=== PATIENT | female | born 1970 | race Caucasian/White ===

== ENCOUNTER 2018-07-24 15:48 | Emergency (ER) | payer SELFPAY ==
[~2018-07-24] VITALS: Ht 170.2 cm; Wt 90.7 kg
[2018-07-24 16:10] VITALS: BP 142/97
[2018-07-24 17:22] LABS: Basophils # (auto) 0.1 uL; Basophils % (auto) 0.5 % (0.0-2.0); Eosinophils # (auto) 0 uL; Eosinophils % (auto) 0.2 % (0.0-7.0); Hematocrit 38.9 % (36.0-46.0); Hemoglobin 13.3 g/dL (12.2-16.2); Lymphocytes # (auto) 1.5 uL; Lymphocytes % (auto) 14.5 % (10.0-50.0); Mean Corpuscular Hemoglobin 30.1 pg (28.0-32.0); Mean Corpuscular Hgb Conc. 34.2 g/dL (32.0-36.0); Mean Corpuscular Volume 88.2 fL (80.0-100.0); Monocytes # (auto) 0.6 uL; Neutrophils # (auto) 8.2 uL; Neutrophils % (auto) 78.8 % (37.0-80.0); Nucleated Red Blood Cells % 0.2 %; Platelet Count (auto) 312 10^3/uL (140-450); Red Blood Cells 4.41 10^6/uL (4.0-5.20); Red Cell Distribution Width 15.8 % (11.8-14.3); White Blood Cell 10.4 10^3/uL (4.4-10.8)
[2018-07-24 17:32] LABS: Albumin 3.4 g/dL (3.4-5.0); Calcium 8.9 mg/dL (8.5-10.1); Magnesium 1.4 mg/dL (1.6-2.6)
[2018-07-24 17:36] LABS: BUN/Creatinine Ratio 7.1; Bilirubin, Total 1.1 mg/dL (0.2-1.0)
== END 2018-07-24 21:34 | disposition left against medical advice (07) ==
LOC: EDBD 15:48 → EDSEX 15:48 → ER 15:52
DX: R42 Dizziness and giddiness (principal); R53.1 Weakness; R11.10 Vomiting, unspecified; Z53.21 Procedure and treatment not carried out due to patient leaving prior to being seen by health care provider
CPT/HCPCS: 36415; 74176; 80053; 83690; 83735; 85025; 93005

== ENCOUNTER 2019-01-19 05:42 | Inpatient (IN) | payer OTHER ==
[~2019-01-19] VITALS: Ht 175.3 cm; Wt 116.1 kg
[2019-01-19] MEDS ORDERED: SODIUM CHLORIDE 0.9% 1,000 ML IV ONE (06:20)
[2019-01-19 06:56] LABS: Basophils # (auto) 0.1 uL; Basophils % (auto) 0.7 % (0.0-2.0); Eosinophils # (auto) 0 uL; Hematocrit 36.3 % (36.0-46.0); Hemoglobin 12.3 g/dL (12.2-16.2); Lymphocytes # (auto) 1.3 uL; Lymphocytes % (auto) 16.7 % (10.0-50.0); Mean Corpuscular Hemoglobin 28.1 pg (28.0-32.0); Mean Corpuscular Hgb Conc. 33.9 g/dL (32.0-36.0); Mean Corpuscular Volume 82.7 fL (80.0-100.0); Monocytes # (auto) 0.5 uL; Monocytes % (auto) 6.3 % (0.0-12.0); Neutrophils % (auto) 76.3 % (37.0-80.0); Platelet Count (auto) 257 10^3/uL (140-450); Red Blood Cells 4.39 10^6/uL (4.0-5.20); Red Cell Distribution Width 17.4 % (11.8-14.3); White Blood Cell 7.8 10^3/uL (4.4-10.8)
[2019-01-19] MEDS ORDERED: LORazepam 2MG/ML-1ML VIAL IV ONE (07:15)
[2019-01-19 07:16] LABS: Urine Bacteria NONE SEEN /hpf (None Seen); Urine Blood 2+ /uL (Negative); Urine Specific Gravity 1.019 (1.001-1.035); Urine WBC 7 /hpf (0 - 5)
[2019-01-19 07:24] LABS: Amphetamine Screen, Urine NEGATIVE (NEGATIVE); Barbiturate Scree,Urine NEGATIVE (NEGATIVE); Benzodiazephine Screen, Urine NEGATIVE (NEGATIVE); Cannabinoid Screen, Urine NEGATIVE (NEGATIVE); Cocaine Screen, Urine NEGATIVE (NEGATIVE); Opiate Scree,Urine NEGATIVE (NEGATIVE); Phencyclidine Screen, Urine NEGATIVE (NEGATIVE)
[2019-01-19 07:26] LABS: Albumin 3.7 g/dL (3.4-5.0); Calcium 8.5 mg/dL (8.5-10.1)
[2019-01-19 07:28] LABS: BUN/Creatinine Ratio 18.8; Bilirubin, Total 0.7 mg/dL (0.2-1.0); Total Protein 7.9 g/dL (6.4-8.2)
[2019-01-19 07:37] LABS: Potassium 2.9 mmol/L (3.5-5.1)
[2019-01-19] MEDS ORDERED: ONDANSETRON HCL 4 MG/2 ML VIAL IV ONE (07:45)
[2019-01-19] MEDS ORDERED: POTASSIUM EFFERVESENT TAB 25 MEQ PO ONE (07:45)
[2019-01-19] MEDS ORDERED: cefTRIAXone 1GM/50ML D5W 50 ML IV ONE (11:00)
[2019-01-19] MEDS ORDERED: LORazepam 0.5 MG TAB PO ONE (12:30)
[2019-01-19] MEDS ORDERED: amLODIPine BESYLATE 5 MG TAB PO ONE (13:15)
[2019-01-19] MEDS ORDERED: HYDROcodone-ACET 5/325MG TAB PO PRN (13:15)
[2019-01-19] MEDS ORDERED: MORPHINE SULF INJ 2 MG/ML SYRINGE 1ML IV PRN ×2 (13:15)
[2019-01-19] MEDS ORDERED: NITROGLYCERIN 0.4 MG SL TAB SL PRN (13:15)
[2019-01-19] MEDS ORDERED: ACETAMINOPHEN 500 MG TAB PO PRN (13:15)
[2019-01-19] MEDS ORDERED: cloNIDine HCL 0.1 MG TAB PO PRN (13:15)
--- NOTE | 2019-01-19 14:24 | NUR ---
MS admit from ER OSBALDO VALLECILLO admitted to tele/MS after SBAR received. Patient oriented to VITALY FRAGA, MILDRED primary RN, unit, room, bed, and unit policies regarding patient care and visiting hours. Patient weighed by bed scale and encouraged to call if they need something. All questions and concerns addressed, patient verbalized understanding.
[2019-01-19] MEDS: chlordiazePOXIDE HCL 5 MG CAP PO PRN ×2 (15:19→21:20)
[2019-01-19] MEDS: MULTIPLE VITAMIN 10 ML, MAGNESIUM SULF SDV 50% 8 MEQ, THIAMINE INJ 100 MG in D5W/SOD CH... IV SCH (15:20)
[2019-01-19 15:40] VITALS: BP 154/70
[2019-01-19 16:53] VITALS: BP 149/94
[2019-01-19] MEDS ORDERED: LOP2C PO (17:17)
[2019-01-19] MEDS ORDERED: TRAZ-220 PO (17:23)
[2019-01-19] MEDS ORDERED: LISI40TA PO (17:25)
[2019-01-19] MEDS ORDERED: FLUO20CA19 PO (17:25)
[2019-01-19] MEDS ORDERED: FLUoxetine HCL 20 MG CAP PO SCH (17:50)
[2019-01-19] MEDS ORDERED: LISINOPRIL 20 MG TAB PO SCH (17:50)
[2019-01-19] MEDS: ONDANSETRON HCL 4 MG/2 ML VIAL IV PRN (18:43)
[2019-01-19] MEDS: LORazepam 0.5 MG TAB PO PRN (18:43)
--- NOTE | 2019-01-19 20:00 | NUR ---
OPENING NOTE RECEIVED REPORT FROM DAYSHIFT RN. ASSUMING ROLE OF CARE OF PATIENT AT THIS TIME. PATIENT SHOWING NO SIGN OF DISTRESS, SHORTNESS OF BREATH, AND PATIENT DENIES ANY PAIN AT THIS TIME. PATIENT APPEARS ALERT AND ORIENTED AND ANSWERS QUESTIONS APPROPRIATELY. PATIENT EDUCATED ON PLAN OF CARE FOR THE NIGHT AND PATIENT VERBALIZED UNDERSTANDING. BED LOWERED, CALL LIGHT WITHIN REACH, AND PATIENT WILL BE ROUNDED ON EVERY HOUR AND NEEDED.
[2019-01-19] MEDS: ATORVASTATIN 20 MG TAB PO SCH (21:20)
[2019-01-19 21:50] VITALS: BP 155/96
[2019-01-19] MEDS: traZODone HCL 50 MG TAB PO SCH (22:00)
[2019-01-20] MEDS: chlordiazePOXIDE HCL 5 MG CAP PO PRN ×3 (05:01→18:09)
[2019-01-20 05:42] VITALS: BP 150/93
[2019-01-20 06:26] LABS: Basophils # (auto) 0 uL; Basophils % (auto) 0.6 % (0.0-2.0); Eosinophils # (auto) 0 uL; Eosinophils % (auto) 0.7 % (0.0-7.0); Hematocrit 36.7 % (36.0-46.0); Hemoglobin 12.3 g/dL (12.2-16.2); Lymphocytes % (auto) 45.5 % (10.0-50.0); Mean Corpuscular Hemoglobin 28.2 pg (28.0-32.0); Mean Corpuscular Hgb Conc. 33.4 g/dL (32.0-36.0); Mean Corpuscular Volume 84.4 fL (80.0-100.0); Monocytes # (auto) 0.6 uL; Monocytes % (auto) 8.7 % (0.0-12.0); Neutrophils # (auto) 2.9 uL; Neutrophils % (auto) 44.5 % (37.0-80.0); Nucleated Red Blood Cells % 0.1 %; Platelet Count (auto) 219 10^3/uL (140-450); Red Blood Cells 4.35 10^6/uL (4.0-5.20); Red Cell Distribution Width 17.1 % (11.8-14.3); White Blood Cell 6.5 10^3/uL (4.4-10.8)
[2019-01-20 06:40] LABS: BUN/Creatinine Ratio 13.6; Magnesium 2.7 mg/dL (1.6-2.6)
[2019-01-20 06:44] LABS: Potassium 2.8 mmol/L (3.5-5.1)
--- NOTE | 2019-01-20 06:45 | NUR ---
CRITICAL LAB VALUE PATIENT'S POTASSIUM LEVEL IS NOW 2.8. IT IS A DECREASE FROM 2.9 THE ON 01/19/19. PATIENT WAS GIVEN 50 MEQ OF POTASSIUM IN THE ER. WILL AWAIT CALL BACK OR ORDERS. Addendum: 01/20/19 at 0719 by CHAITANYA FRENCH RN HOSPITALIST [facility]. NO RESPONSE AT THIS TIME. ENDORSED TO DAVID LEVY.
--- NOTE | 2019-01-20 07:00 | NUR ---
Opening Shift Note Assumed care of patient, awake, alert, and oriented x4. No S/S of distress/SOB, but patient is reporting lower abdominal cramping. IV is in left AC 20 gauge asymptomatic, intact, patent, and saline locked. Bed locked and in lowest position and call light is within reach. Instructed on POC and to call for assist PRN, and patient verbalized understanding. Will continue to monitor for changes Q1hr and PRN.
[2019-01-20] MEDS: ONDANSETRON HCL 4 MG/2 ML VIAL IV PRN ×3 (07:22→23:22)
[2019-01-20] MEDS: LORazepam 0.5 MG TAB PO PRN ×4 (07:22→23:22)
[2019-01-20 08:31] VITALS: BP 150/96
[2019-01-20] MEDS ORDERED: POTASSIUM CHL 20 Meq TABLET PO ONE (09:00)
[2019-01-20] MEDS ORDERED: DIPHENOXYLATE W/ATROPINE 2.5 MG TAB PO PRN (09:15)
--- NOTE | 2019-01-20 09:30 | NUR ---
Filiberto Elizabeth NP, at bedside. New orders received. Will continue to monitor patient Q1.
[2019-01-20] MEDS: PANTOPRAZOLE 40 MG TAB PO SCH (11:07)
[2019-01-20] MEDS: LISINOPRIL 20 MG TAB PO SCH (11:08)
[2019-01-20] MEDS: FLUoxetine HCL 20 MG CAP PO SCH (11:08)
[2019-01-20] MEDS: LOPERAMIDE HCL 2 MG CAP PO PRN ×2 (11:12→18:09)
[2019-01-20 12:49] VITALS: BP 142/91
--- NOTE | 2019-01-20 13:30 | NUR ---
IV removal IV DC'd with clean sterile technique, catheter fully intact. Pressure dressing applied to site. Patient tolerated well.
--- NOTE | 2019-01-20 14:00 | NUR ---
IV insertion IV access obtained, via clean sterile technique by inserting 22 gauge catheter in the right upper chest. IV secured properly. No trauma to site. Patient tolerated well.
[2019-01-20] MEDS: MULTIPLE VITAMIN 10 ML, MAGNESIUM SULF SDV 50% 8 MEQ, THIAMINE INJ 100 MG in D5W/SOD CH... IV SCH (16:25)
[2019-01-20 17:23] VITALS: BP 136/63
[2019-01-20] MEDS: metroNIDAZOLE 500 MG TAB PO SCH ×2 (18:08→21:30)
--- NOTE | 2019-01-20 19:45 | NUR ---
OPENING NOTE RECEIVED REPORT FROM DAYSHIFT RN. ASSUMING ROLE OF CARE OF PATIENT AT THIS TIME. PATIENT SHOWING NO SIGN OF DISTRESS, SHORTNESS OF BREATH,A ND PATIENT DENIES ANY PAIN AT THIS TIME. PATIENT STATES FEELING ANXIOUS AND WILL BE MEDICATED PER PROTOCOL AVAILABLE. PATIENT EDUCATED ON PLAN OF CARE FOR THE NIGHT AND PATIENT VERBALIZED UNDERSTANDING. BED LOWERED, CALL LIGHT WITHIN REACH, AND PATIENT WILL BE ROUNDED ON EVERY HOUR AND NEEDED.
[2019-01-20] MEDS: ATORVASTATIN 20 MG TAB PO SCH (21:28)
[2019-01-20] MEDS: traZODone HCL 50 MG TAB PO SCH (21:28)
[2019-01-20 22:00] VITALS: BP 140/84
[2019-01-21 04:30] VITALS: BP 121/71
[2019-01-21] MEDS: metroNIDAZOLE 500 MG TAB PO SCH ×2 (05:41→13:14)
[2019-01-21] MEDS: chlordiazePOXIDE HCL 5 MG CAP PO PRN ×2 (05:47→11:50)
[2019-01-21 06:01] LABS: Basophils # (auto) 0.1 uL; Basophils % (auto) 1.1 % (0.0-2.0); Eosinophils # (auto) 0.2 uL; Eosinophils % (auto) 3.4 % (0.0-7.0); Hematocrit 35.2 % (36.0-46.0); Hemoglobin 11.7 g/dL (12.2-16.2); Lymphocytes # (auto) 2.9 uL; Lymphocytes % (auto) 48.8 % (10.0-50.0); Mean Corpuscular Hgb Conc. 33.2 g/dL (32.0-36.0); Mean Corpuscular Volume 84.2 fL (80.0-100.0); Monocytes # (auto) 0.4 uL; Monocytes % (auto) 7.1 % (0.0-12.0); Neutrophils # (auto) 2.3 uL; Neutrophils % (auto) 39.6 % (37.0-80.0); Nucleated Red Blood Cells % 0.1 %; Platelet Count (auto) 200 10^3/uL (140-450); Red Blood Cells 4.18 10^6/uL (4.0-5.20); Red Cell Distribution Width 16.3 % (11.8-14.3); White Blood Cell 5.8 10^3/uL (4.4-10.8)
[2019-01-21 06:19] LABS: BUN/Creatinine Ratio 13.4; Calcium 7.9 mg/dL (8.5-10.1); Magnesium 2.6 mg/dL (1.6-2.6); Potassium 3.2 mmol/L (3.5-5.1)
--- NOTE | 2019-01-21 07:10 | NUR ---
Opening Shift Note Received report from Brown RN. Assumed care of patient, asleep. No S/S of distress/SOB or pain. Placed call light within reach, kept 2 side rails up, will continue to monitor for changes Q1hr and PRN.
[2019-01-21 08:00] VITALS: BP 114/78
[2019-01-21 08:23] VITALS: BP 114/78
[2019-01-21] MEDS: LORazepam 0.5 MG TAB PO PRN ×2 (09:12→13:13)
[2019-01-21] MEDS: LISINOPRIL 20 MG TAB PO SCH (09:13)
[2019-01-21] MEDS: FLUoxetine HCL 20 MG CAP PO SCH (09:13)
[2019-01-21] MEDS: PANTOPRAZOLE 40 MG TAB PO SCH (09:13)
--- NOTE | 2019-01-21 09:53 | NUR ---
assessment Per consult alcohol rehab options. I have provided patient with inpatient and outpatient rehab facilities. patient accepted resources. Addendum: 01/23/19 at 0955 by Leah Hernandez Amended: Links added.
--- NOTE | 2019-01-21 11:25 | NUR ---
Filiberto FILM PROJECTOR OPERATOR at bedside. Received order that patient can be discharged today if cleared by GI. Patient made aware and verbalized understanding.
[2019-01-21] MEDS ORDERED: POTASSIUM CHL 20 Meq TABLET PO ONE (11:30)
[2019-01-21] MEDS: MULTIPLE VITAMIN 10 ML, MAGNESIUM SULF SDV 50% 8 MEQ, THIAMINE INJ 100 MG in D5W/SOD CH... IV SCH (11:51)
[2019-01-21] MEDS: ONDANSETRON HCL 4 MG/2 ML VIAL IV PRN (11:59)
--- NOTE | 2019-01-21 12:05 | NUR ---
DR CALDERÓN CALLED BACK TO INFORM THAT HE WOULD NOT SEE THE PATIENT JA[facility] BECAUSE HE DOES NOT COME TO [facility] ON WEEKENDS. SAID TO CALL IN GI CONSULT FOR DR. CAVAZOS. STOCK REPLENISHER SHAUNA MADE AWARE.
[2019-01-21 12:35] VITALS: BP 132/88
[2019-01-21 12:42] VITALS: BP 114/78
--- NOTE | 2019-01-21 13:50 | NUR ---
SPOKE WITH DR. CAVAZOS, RECEIVED VERBAL ORDER THAT PATIENT IS CLEARED [facility]. FF UP WITH GI OUTPATIENT. PATIENT MADE AWARE AND VERBALIZED UNDERSTANDING.
--- NOTE | 2019-01-21 14:27 | NUR ---
Discharge instructions given as ordered. Encourage to follow up with PMD as instructed. All questions and concerns addressed. Patient verbalized understanding. IV removed with catheter intact, pressure dressing applied. Patient taken to vehicle via wheelchair with all personal belongings, accompanied by staff and family member. No distress noted at time of departure.
== END 2019-01-21 14:28 | disposition home or self-care (01) | DRG 52 ==
LOC: ER 05:42 → OVERFLOW 13:11 → WEST WING 14:14
PROVIDERS: ADMIT Nurse Practitioner Acute Care; ATTEND Nurse Practitioner Acute Care
DX: G92 Toxic encephalopathy (principal); F33.1 Major depressive disorder, recurrent, moderate; E66.9 Obesity, unspecified; F41.9 Anxiety disorder, unspecified; K52.9 Noninfective gastroenteritis and colitis, unspecified; E78.5 Hyperlipidemia, unspecified; E87.6 Hypokalemia; F10.239 Alcohol dependence with withdrawal, unspecified; I10 Essential (primary) hypertension; N39.0 Urinary tract infection, site not specified; Z68.37 Body mass index [BMI] 37.0-37.9, adult
CPT/HCPCS: 36415; 71046; 80048; 80053; 80061; 80307; 80320; 81001; 82270; 83735; 84132; 84702; 85025; 87040; 87045; 87493; 87899; 93005; 96361; 96365; 96366; 96375; G0378; J0696; J2405

== ENCOUNTER 2019-01-26 19:51 | Emergency (ER) | payer OTHER ==
[~2019-01-26] VITALS: Ht 175.3 cm; Wt 113.4 kg
[~2019-01-26 19:51] MED LIST: FLUO20CA19 PO; LISI40TA PO; LOP2C PO; TRAZ-220 PO
[2019-01-27] MEDS ORDERED: LORazepam 2MG/ML-1ML VIAL IV ONE (00:45)
[2019-01-27] MEDS ORDERED: MULTIPLE VITAMIN 10 ML, MAGNESIUM SULF SDV 50% 8 MEQ, THIAMINE INJ 100 MG in SODIUM CHL... IV ONE (00:45)
[2019-01-27 01:15] LABS: Salicylate < 1.7 mg/dL (2.8-20.0)
[2019-01-27 01:18] LABS: Albumin 3.3 g/dL (3.4-5.0); Calcium 7.8 mg/dL (8.5-10.1); Potassium 3.7 mmol/L (3.5-5.1)
[2019-01-27 01:29] LABS: Bilirubin, Total 0.3 mg/dL (0.2-1.0); Total Protein 7.2 g/dL (6.4-8.2)
[2019-01-27 01:42] LABS: Acetaminophen < 2.0 ug/mL (10-30)
[2019-01-27 04:25] VITALS: BP 108/77
[2019-01-27] MEDS ORDERED: MAGNESIUM SULF IV ONE (12:00)
[2019-01-27] MEDS ORDERED: MULTIPLE VITAMIN IV ONE (12:00)
[2019-01-27] MEDS ORDERED: THIAMINE IV ONE (12:00)
[2019-01-27] MEDS ORDERED: [UNRECOGNIZED DRUG - OTHER] IV ONE (12:00)
== END 2019-01-27 04:40 | disposition home or self-care (01) ==
LOC: EDBD 19:51 → ER 19:53
DX: F10.229 Alcohol dependence with intoxication, unspecified (principal); F41.9 Anxiety disorder, unspecified; I10 Essential (primary) hypertension; Z79.899 Other long term (current) drug therapy; Z90.49 Acquired absence of other specified parts of digestive tract
CPT/HCPCS: 36415; 80053; 80320; 80329; 94761; 96365; 96366; 96375; 99283; J2060; J3411; J3475; J7030

== ENCOUNTER 2020-03-23 02:47 | Emergency (ER) | payer OTHER ==
[~2020-03-23] VITALS: Ht 175.3 cm; Wt 127.0 kg
[2020-03-23] MEDS ORDERED: ONDANSETRON ODT 4 MG TAB PO ONE ×2 (04:25→04:30)
[2020-03-23] MEDS ORDERED: SODIUM CHLORIDE 0.9% 1,000 ML IV ONE ×2 (06:43)
[2020-03-23] MEDS ORDERED: ONDANSETRON HCL 4 MG/2 ML VIAL IV ONE (06:45)
[2020-03-23] MEDS ORDERED: KETOROLAC TROMETH 30 MG/ML 1ML VIAL IV ONE (06:45)
[2020-03-23 08:23] LABS: Urine Amorphous Crystal MANY /hpf (None Seen); Urine Bacteria NONE SEEN /hpf (None Seen); Urine Blood Negative /uL (Negative); Urine Mucus FEW (None Seen); Urine Specific Gravity 1.028 (1.001-1.035); Urine WBC 10 /hpf (0 - 5)
[2020-03-23 10:04] LABS: Hematocrit 34.2 % (36.0-46.0); Hemoglobin 10.9 g/dL (12.2-16.2); Mean Corpuscular Hemoglobin 26.2 pg (28.0-32.0); Mean Corpuscular Hgb Conc. 31.9 g/dL (32.0-36.0); Mean Corpuscular Volume 82.1 fL (80.0-100.0); Platelet Count (auto) 287 10^3/uL (140-450); Red Blood Cells 4.17 10^6/uL (4.0-5.20); Red Cell Distribution Width 16.4 % (11.8-14.3); White Blood Cell 9.5 10^3/uL (4.4-10.8)
[2020-03-23 10:12] LABS: Band Neutrophils % (manual) 0; Basophils % (manual) 0 (0.0-2.0); Blast Cells 0; Eosinophils % (manual) 0 (0-7); Metamyelocytes % 0; Myelocytes % 0; Promyelocytes % 0; Reactive Lymphocytes 0
[2020-03-23 10:25] LABS: Albumin 3.8 g/dL (3.4-5.0); Calcium 8.3 mg/dL (8.5-10.1); Potassium 3.9 mmol/L (3.5-5.1)
[2020-03-23 10:31] LABS: BUN/Creatinine Ratio 13.3; Bilirubin, Total 0.5 mg/dL (0.2-1.0); Total Protein 8.3 g/dL (6.4-8.2)
[2020-03-23 10:48] LABS: Lymphocytes % (manual) 21 (10.0-50.0); Monocytes % (manual) 4 (0-12)
[2020-03-23] MEDS ORDERED: PROMETHAZINE HCL 25 MG/ML 1ML IV ONE (12:30)
[2020-03-23 15:53] VITALS: BP 145/78
== END 2020-03-23 15:48 | disposition home or self-care (01) ==
LOC: ER 02:50
DX: K52.9 Noninfective gastroenteritis and colitis, unspecified (principal); E86.0 Dehydration; N39.0 Urinary tract infection, site not specified; N83.202 Unspecified ovarian cyst, left side; Z90.49 Acquired absence of other specified parts of digestive tract
CPT/HCPCS: 36415; 74176; 76830; 76856; 80053; 81001; 85007; 85027; 96361; 96374; 96375; 99285; J1885; J2405; J2550; J7030; Q0162

== ENCOUNTER 2020-03-29 21:24 | Emergency (ER) | payer OTHER ==
[~2020-03-29] VITALS: Ht 177.8 cm; Wt 99.8 kg
[~2020-03-29 21:24] MED LIST changes: -LISI40TA PO; +LISI40TA11 PO
[2020-03-29 21:47] VITALS: BP 118/74
[2020-03-29 22:47] LABS: Basophils # (auto) 0 10 ^3/uL (0-0.2); Basophils % (auto) 0.3 % (0.0-2.0); Eosinophils # (auto) 0.1 10 ^3/uL (0-0.8); Eosinophils % (auto) 1.4 % (0.0-7.0); Hematocrit 37.2 % (36.0-46.0); Hemoglobin 11.9 g/dL (12.2-16.2); Lymphocytes # (auto) 1.8 10 ^3/uL (0.4-5.4); Lymphocytes % (auto) 37.3 % (10.0-50.0); Mean Corpuscular Hemoglobin 26.5 pg (28.0-32.0); Mean Corpuscular Hgb Conc. 31.9 g/dL (32.0-36.0); Monocytes # (auto) 0.4 10 ^3/uL (0-1.3); Monocytes % (auto) 8.4 % (0.0-12.0); Neutrophils # (auto) 2.5 10 ^3/uL (1.6-8.6); Neutrophils % (auto) 52.6 % (37.0-80.0); Platelet Count (auto) 322 10^3/uL (140-450); Red Blood Cells 4.48 10^6/uL (4.0-5.20); Red Cell Distribution Width 16.8 % (11.8-14.3); White Blood Cell 4.8 10^3/uL (4.4-10.8)
[2020-03-29 23:08] LABS: Urine Bacteria FEW /hpf (None Seen); Urine Blood 2+ /uL (Negative); Urine Specific Gravity 1.005 (1.001-1.035); Urine WBC 2 /hpf (0 - 5)
[2020-03-29 23:31] LABS: Albumin 3.8 g/dL (3.4-5.0); Calcium 8.6 mg/dL (8.5-10.1); Potassium 3.7 mmol/L (3.5-5.1)
[2020-03-29 23:35] LABS: Amphetamine Screen, Urine NEGATIVE (NEGATIVE); Barbiturate Scree,Urine NEGATIVE (NEGATIVE); Benzodiazephine Screen, Urine NEGATIVE (NEGATIVE); Cannabinoid Screen, Urine NEGATIVE (NEGATIVE); Cocaine Screen, Urine NEGATIVE (NEGATIVE); Opiate Scree,Urine NEGATIVE (NEGATIVE); Phencyclidine Screen, Urine NEGATIVE (NEGATIVE)
[2020-03-29 23:38] LABS: Bilirubin, Total 0.2 mg/dL (0.2-1.0); Total Protein 8.8 g/dL (6.4-8.2)
[2020-03-29 23:59] LABS: BUN/Creatinine Ratio 15.7
[2020-03-30] MEDS ORDERED: SODIUM CHLORIDE 0.9% 1,000 ML IV ONE (00:15)
[2020-03-30] MEDS ORDERED: ONDANSETRON HCL 4 MG/2 ML VIAL IV ONE (00:15)
[2020-03-30] MEDS ORDERED: THIAMINE 100mg/ml INJ (200mg/2ml VIAL) IV ONE (00:15)
== END 2020-03-30 02:00 | disposition left against medical advice (07) ==
LOC: ER 21:24 → EDBD 21:24 → ER 03-30 02:00
DX: F10.129 Alcohol abuse with intoxication, unspecified (principal); R41.82 Altered mental status, unspecified; I10 Essential (primary) hypertension; Z90.49 Acquired absence of other specified parts of digestive tract; Y90.9 Presence of alcohol in blood, level not specified
CPT/HCPCS: 36415; 80053; 80307; 80320; 81001; 85025; 96361; 96374; 96375; 99284; J2405; J3411; J7030